=== PATIENT | male | born 1955 | race Caucasian/White ===

== ENCOUNTER 2018-05-08 15:02 | Outpatient (CLI) | payer MEDICARE ==
[2018-05-08 15:45] LABS: #Eosinphils 0.1 thou/uL (0.0-0.7); #Lymphocytes 1.5 thou/uL (1.20-3.40); #Monocytes 0.5 thou/uL (0.11-0.59); #Neutrophils 4.1 thou/uL (1.40-6.50); %Basophils 0.4 % (0.0-1.0); %Eosinophils 2.3 % (0.0-10.0); %Lymphocytes 23.3 % (21.0-51.0); %Monocytes 8.3 % (0.0-10.0); %Neutrophils 65.6 % (42.0-75.0); Hemoglobin 13.1 g/dL (14.0-18.0); Mean Corpuscular HGB CONC 35.3 g/dL (32.0-36.0); Mean Corpuscular Hemoglobin 31.4 pg (27.0-31.0); Mean Corpuscular Volume 88.9 fL (78.0-98.0); Mean Platelet Volume 7.1 fL (7.4-10.4); Platelet Count 147 thou/uL (130-400); Red Blood Cell (RBC) Count 4.19 mill/uL (4.70-6.10); White Blood Cell (WBC) Count 6.3 thou/uL (4.8-10.8)
[2018-05-08 16:03] LABS: Anion Gap 13 mmol/L (10-20); BUN (Urea Nitrogen) 72 mg/dL (8.4-25.7); Calc. Creatinine Clearance 0 mL/min (70-130); Calcium 9.3 mg/dL (7.8-10.44); Carbon Dioxide 30 mmol/L (23-31); Chloride 100 mmol/L (98-107); Estimated GFR-MDRD 39; Glucose 105 mg/dL (80-115); Potassium 4.5 mmol/L (3.5-5.1); Sodium 138 mmol/L (136-145)
[2018-05-08 16:10] LABS: PTT 29.7 SEC (22.9-36.1)
--- NOTE | 2018-05-09 17:02 | EKG ---
Test Reason : Blood Pressure : / mmHG Vent. Rate : 064 BPM Atrial Rate : 064 BPM P-R Int : 134 ms QRS Dur : 154 ms QT Int : 418 ms P-R-T Axes : 058 091 -25 degrees QTc Int : 431 ms Electronic atrial pacemaker Premature ventricular complexes Rightward axis Non-specific intra-ventricular conduction block Cannot rule out Inferior infarct , age undetermined Abnormal ECG Confirmed by FEDERICO VOGEL ([id number]) on 05/09/2018 5:02:21 PM Referred By: ISMA Confirmed By:FEDERICO VOGEL
== END 2018-05-08 15:03 | disposition home or self-care (01) ==
LOC: LABBT 15:02
PROVIDERS: ATTEND Internal Medicine Cardiovascular Disease
DX: Z01.818 Encounter for other preprocedural examination (principal); Z51.81 Encounter for therapeutic drug level monitoring; I50.9 Heart failure, unspecified; Z79.01 Long term (current) use of anticoagulants
CPT/HCPCS: 80048; 85025; 85610; 85730; 93005; 93010

== ENCOUNTER 2018-05-10 08:50 | Day surgery (SDC) | payer MEDICARE ==
[2018-05-08 15:37] VITALS: BMI 36.2
[2018-05-10] MEDS ORDERED: Iopamidol 370 76% 50 ML VIAL FS ONE (10:06)
[2018-05-10] MEDS ORDERED: Midazolam HCl 5 mg/5 ml Vial ONE (11:20)
[2018-05-10] MEDS ORDERED: CEFAZOLIN/Water 2 GM/20 ML SYRINGE ONE (11:20)
[2018-05-10] MEDS ORDERED: Ketamine 50 MG/ML VIAL ONE (11:20)
[2018-05-10] MEDS ORDERED: Propofol 1,000 MG/100 ML VIAL IV ONE (11:21)
[2018-05-10] MEDS ORDERED: Morphine Sulfate 2 MG/ML SYRINGE SLOW IVP PRN (13:02)
[2018-05-10] MEDS ORDERED: Ondansetron HCl/PF 4 MG/2 ML Vial IVP PRN (13:02)
[2018-05-10] MEDS ORDERED: Promethazine HCl 25 MG/ML VIAL SLOW IVP PRN (13:02)
--- NOTE | 2018-05-10 15:32 | RAD ---
CHEST 1 VIEW: HISTORY: AICD. COMPARISON: None. FINDINGS: Heart size is enlarged. Mild pulmonary venous congestion. AICD/pacer is present. There is markedly diminished degenerative change of both glenohumeral joints. No acute osseous abnor mality. Right axillary surgical clips. IMPRESSION: Cardiomegaly and mild pulmonary venous congestion. POS: [facility]
== END 2018-05-10 16:18 | disposition home or self-care (01) ==
LOC: CCL 08:50
PROVIDERS: ATTEND Internal Medicine Cardiovascular Disease
PROC: 02HN0KZ Insertion of Defibrillator Lead into Pericardium, Open Approach (ICD-10-PCS; principal; 2018-05-10)
PROC: 0JH609Z Insertion of Cardiac Resynchronization Defibrillator Pulse Generator into Chest Subcutaneous Tissue and Fascia, Open Approach (ICD-10-PCS; 2018-05-10)
DX: I11.0 Hypertensive heart disease with heart failure (principal); I50.22 Chronic systolic (congestive) heart failure; I42.8 Other cardiomyopathies; I44.7 Left bundle-branch block, unspecified; E78.2 Mixed hyperlipidemia; G47.33 Obstructive sleep apnea (adult) (pediatric); E11.9 Type 2 diabetes mellitus without complications; E66.01 Morbid (severe) obesity due to excess calories; Z68.36 Body mass index [BMI] 36.0-36.9, adult; Z79.4 Long term (current) use of insulin; Z79.82 Long term (current) use of aspirin; Z79.899 Other long term (current) drug therapy
CPT/HCPCS: 33224; 33225; 36005; 71045; 75820; 82962; 93641; C1769; C1882; C1900; 36416; J2250; J2704; J3490

== ENCOUNTER 2019-01-27 22:16 | Inpatient (IN) | payer MEDICARE ==
--- NOTE | 2019-01-27 23:47 | PDOC.FPRHP ---
- History of Present Illness Chief Complaint: SOB History of Present Illness: Mr Bourgeois is a 64yo male with pmh DMII, HTN, HLD, HFrEF presenting with SOB that started Sunday directly transferred from [facility] in [facility]. Reports he started to have cough, orthopnea, and SOB with exertion on Sunday. Sunday he developed LE edema. SOB has since been worsening which is why he presented to ED. Denies fevers, chills, palpitations. He sees Dr Lanier, nuclear plant construction worker, and has an AICD. Denies being shocked by AICD. Not on O2 at baseline. Uses CPAP at night for sleep apnea. PCP: Dr Gaytan ED Course: Lasix 80mg, CXR- nml - Allergies/Adverse Reactions Allergies Allergy/AdvReac Type Severity Reaction Status Date / Time No Known Allergies Allergy Unverified 05/08/18 15:31 - Home Medications Medication Instructions Recorded Confirmed Type Allopurinol 300 mg PO QAM 01/10/17 05/10/18 History Aspirin [Ecotrin] 81 mg PO QPM 01/10/17 05/10/18 History Carvedilol 50 tab PO BID 01/10/17 05/10/18 History Celecoxib 200 mg PO QAM 01/10/17 05/10/18 History Cyclobenzaprine [Flexeril] 10 mg PO ASDIR PRN 01/10/17 05/08/18 History Digoxin 125 mcg PO ASDIR 01/10/17 05/10/18 History Gemfibrozil 600 mg PO BID 01/10/17 05/10/18 History HYDROcodone/Acetaminophen 1 tab PO ASDIR PRN 01/10/17 05/10/18 History [Hydrocodon-Acetaminophn 10-325] Humulin R [NovoLIN R] 20 - 25 units SC BID-WM 01/10/17 05/10/18 History Insulin NPH Human Isophane 25 unit SC BID 01/10/17 05/10/18 History [NovoLIN N] Lisinopril 10 mg PO BID 01/10/17 05/10/18 History Omeprazole 20 mg PO QAM 01/10/17 05/10/18 History Pravastatin Sodium [Pravachol] 20 mg PO HS 01/10/17 05/10/18 History Sertraline HCl 150 mg PO QAM 01/10/17 05/10/18 History Tramadol HCl 50 mg PO ASDIR PRN 01/10/17 05/10/18 History Mn 05/08/18 History Torsemide [Demadex] 20 mg PO BID 05/08/18 05/10/18 History - History PMHx: DM, Breast CA, HTN, HLD, ILANA PSHx: Knee, hip, back surgery x2, Hand surgery FHx: HTN, DM Social: Smoked 1/2ppd for 15 yrs quit in 1993. Denies alcohol or drug use. - Review of Systems General: denies: fever/chills, weight/appetite/sleep changes, night sweats Eyes: denies: eye pain, vision changes ENT: denies: nasal congestion, rhinorrhea Respiratory: reports: cough, shortness of breath, exercise intolerance. denies : congestion Cardiovascular: reports: chest pain, edema, paroxysmal nocturnal dyspnea, orthopnea. denies: palpitation Gastrointestinal: denies: nausea, vomiting, diarrhea, constipation, abdominal pain Genitourinary: denies: dysuria, other (hematuria) Skin: denies: rashes, lesions Musculoskeletal: denies: pain, tenderness Neurological: denies: syncope, weakness - Vital signs BP: 167/81 HR: 52 RR: 20 Tmax: 97.7 Pox: 96% on 3L Wt: 115kg - Physical Exam Constitutional: NAD, awake, alert and oriented, well developed HEENT: normocephalic and atraumatic, conjunctiva clear, grossly normal hearing, MMM, oropharynx clear Neck: supple, trachea midline, no JVD, no bruits Heart: RRR, pulses present, other (pitting edema to ankles) Lungs: other (Coarse breath sounds bilateral. Currently on 3L NC) Abdomen: soft, non-tender, bowel sounds present Musculoskeletal: normal structure, normal tone, ROM grossly normal Neurological: no focal deficit Skin: no rash/lesions, good turgor Heme/Lymphatic: no unusual bruising or bleeding Psychiatric: normal mood and affect, good judgment and insight, intact recent and remote memory FMR H&P: Results - Labs Result Diagrams: 01/27/19 23:22 - Radiology Interpretation Chest x-ray Status: report reviewed by me Additional comment: Bibasilar atelectasis/scar. No pulm edema FMR H&P: A/P - Plan Mr Reisig is a 64yo male with pmh of CHF presenting transferred from [facility] in [facility] for CHF exacerbation CHF exacerbation - Echo on 03/29/17: LVEF 30-35%, borderline LA enlargement and mild TR - BNP 1218 - Has Dual chamber ICD placed November 2010 - diet, fluid restriction - Strict I&Os, weight daily - s/p Lasix 80mg at OSH. Will continue lasix 40mg BID - Continue home meds, treat dysrhythmia - Admit to tele Ventricular Dysrhythmia - Runs of NSVT and PVCs - Dr Peguero called from the ED, will load with Amiodarone - Will consult Dr Lanier in AM Hypomagnesemia - Initially 1.5 - Replaced with 2g at OSH, recheck was 1.8 - Will recheck with morning labs HTN - Continue home meds CKD - Avoid nephrotoxic medications - Continue to monitor with AM BMP DMII - CC diet - Continue home meds - ACHS accuchecks, SSI, hypoglycemic protocol ILANA - CPAP at HS HLD - Continue home meds Hx of Remote breast cancer Code Status: FULL DVT ppx: Lovenox PCP: Dr Gaytan FMR H&P: Upper Level - Pertinent history 64 yo CM with PMH of nonischemic cardiomyopathy and HFrEF (last documented 2016 30-35%) s/p biventricular AICD/pacemaker presenting with worsening HENDERSON and lower extremity swelling that began on Sunday. Pt initially presented to [facility] and transferred here for higher level of care. Pt found to have elevated BNP and low magnesium. Pt given 80 mg IV lasix. In ER, pt noted to have ventricular arrhythmia on telemetry and EKG including frequent runs of 6-7 PVCs, nonsustained Vtach, and paced rhythm. Pt denies CP or palpitations and only endorses HENDERSON. - Pertinent findings VSS Gen: NAD CV: irregular rhythm, distant heart sounds, no obvious murmur Resp: coarse rales bilaterally - Plan Date/Time: 01/27/19 4299 I, Bulmaro Douglas MD PGY3, have evaluated this patient and agree with findings/ plan as outlined by administrative intern resident. Pertinent changes/additions are listed here. 1. HFrEF (EF 30-35%) exacerbation -Admit to inpatient telemetry for CHF exacerbation with strict I/O's and IV lasix. -Repeat 2 view CXR. -Obtain TTE as pt was scheduled to have one repeated today in outpatient setting. 2. Hypomagnesemia -1.5 at outside facility s/p 2 g, corrected to 1.8 -Repeat in AM along with Ph level 3. Ventricular arrhythmia -AICD has not fired. -Discussed case with international broadcast music librarian nuclear plant construction worker who recommended loading and starting IV amiodarone. 150 mg slow IVP ordered then gtt at 1 mg/min. -See note below regarding interrogation. -Consult cardiology in AM, pt's nuclear plant construction worker is Dr. Lanier. 4. Nonischemic cardiomyopathy s/p biventricular AICD/pacemaker -[employer] device interrogated in ER. -Report called back that noted around 23:45, pt had episode of atrial rate in 70s and ventricular rate in 130s, confirming ventricular arrhythmia seen on telemetry. 5. ABRIL on CKD3 -Trend BMP. FULL code PPx: lovenox for VTE, no GI indicated. disposition: Admit under inpatient status for anticipated length of stay greater than two midnights, pending clinical course. Addendum - Attending - Attending Attestation Date/Time: 01/27/19 2297 I personally evaluated the patient and discussed the management with Dr. Blackman /Misael. I agree with the History, Examination, Assessment and Plan documented above with any addition or exceptions noted below. Patient with history of nonischemic cardiomyopathy and CHFrEF with AICD in place presenting with 2-3 days of increasing chest congestion and lower extremity swelling. Reports taking all meds as rx'd and adhering to his fluid restriction. Saw Dr. Lanier 1 month ago and was told was stable. Denies chest pain, palpitations. ON exam, diffuse rales b/l and 3+ b/l edema. EKG shows frequent PVC, nonsustained VT, and otherwise V paced rhythm. Patient will be admitted for CHFrEF exacerbation and ventricular dysrhythmia. Admit to telemetry. Will load with Amiodarone per Cardiology recs. Continue diuresis and other HF meds. Labs done at OSH and will repeat here as had HypoMg at outside hospital that was treated. Discuss with patient's outpatient nuclear plant construction worker in AM. Further mgmt per clinical course and cardiology recs.
[2019-01-27 23:57] LABS: Anion Gap 16 mmol/L (10-20); BUN (Urea Nitrogen) 59 mg/dL (8.4-25.7); Calc. Creatinine Clearance 0 mL/min (70-130); Calcium 9.6 mg/dL (7.8-10.44); Carbon Dioxide 27 mmol/L (23-31); Chloride 100 mmol/L (98-107); Estimated GFR-MDRD 43; Glucose 100 mg/dL (80-115); Magnesium 1.8 mg/dL (1.6-2.6); Potassium 4.2 mmol/L (3.5-5.1); Sodium 139 mmol/L (136-145)
[2019-01-28] MEDS ORDERED: Amiodarone 150 MG/3 ML VIAL ONE (00:07)
[2019-01-28 00:08] LABS: Troponin I 0.026 ng/mL (< 0.028)
[2019-01-28] MEDS ORDERED: Amiodarone HCl 150 MG in Dextrose 5% in Water 100 ML IVPB SCH (00:15)
[2019-01-28] MEDS ORDERED: Amiodarone HCl 450 MG in Dextrose 5% in Water 250 ML IVPB SCH (00:15)
[2019-01-28] MEDS ORDERED: Amiodarone 450 MG in Dextrose 5% in Water 250 ML IVPB SCH (01:58)
[2019-01-28] MEDS ORDERED: Dextrose 50% Abboject 50 ML SYRINGE SLOW IVP PRN (01:58)
[2019-01-28] MEDS ORDERED: HumaLOG 300 UNITS/3 ML VIAL SC PRN (01:58)
[2019-01-28] MEDS ORDERED: Dextrose 5% in Water 1,000 ML IV PRN (01:58)
[2019-01-28 02:23] VITALS: BMI 36.0
[2019-01-28 02:45] LABS: #Eosinphils 0.2 thou/uL (0.0-0.7); #Lymphocytes 1.4 thou/uL (1.20-3.40); #Monocytes 0.5 thou/uL (0.11-0.59); #Neutrophils 4.7 thou/uL (1.40-6.50); %Basophils 0.7 % (0.0-1.0); %Eosinophils 2.8 % (0.0-10.0); %Monocytes 7.1 % (0.0-10.0); %Neutrophils 69.4 % (42.0-75.0); Hemoglobin 12.6 g/dL (14.0-18.0); Mean Corpuscular HGB CONC 33.3 g/dL (32.0-36.0); Mean Corpuscular Hemoglobin 30.2 pg (27.0-31.0); Mean Corpuscular Volume 90.7 fL (78.0-98.0); Mean Platelet Volume 7.3 fL (7.4-10.4); Platelet Count 209 thou/uL (130-400); RBC Distribution Width 12.9 % (11.5-14.5); Red Blood Cell (RBC) Count 4.17 mill/uL (4.70-6.10); White Blood Cell (WBC) Count 6.8 thou/uL (4.8-10.8)
[2019-01-28 03:08] LABS: Anion Gap 16 mmol/L (10-20); BUN (Urea Nitrogen) 59 mg/dL (8.4-25.7); Calc. Creatinine Clearance 69 mL/min (70-130); Calcium 9.6 mg/dL (7.8-10.44); Carbon Dioxide 23 mmol/L (23-31); Chloride 103 mmol/L (98-107); Estimated GFR-MDRD 40; Glucose 102 mg/dL (80-115); Magnesium 1.6 mg/dL (1.6-2.6); Potassium 3.9 mmol/L (3.5-5.1); Sodium 138 mmol/L (136-145)
[2019-01-28 03:09] LABS: Troponin I 0.027 ng/mL (< 0.028)
[2019-01-28] MEDS: Furosemide 40 MG/4 ML VIAL SLOW IVP SCH ×2 (05:26→13:10)
[2019-01-28 06:35] LABS: Troponin I 0.028 ng/mL (< 0.028)
--- NOTE | 2019-01-28 08:12 | PDOC.EVN ---
Addendum - Attending - Attending Attestation Date/Time: 01/28/19 6440 I personally evaluated the patient and discussed the management with Dr. Turner. I agree with the History, Examination, Assessment and Plan documented in her progress note with any addition or exceptions noted below. Patient improved this morning. Here for CHF exacerbation and ventricular dysrhythmia. His rhythm strip has improved to consistent bigeminy on tele after initiation of Amiodarone drip. Denies complaints. Reports some improvement in swelling and chest congestion. Continue Amio drip, await Cardiology recs regarding this new arrhythmia. Continue diuresis and monitor I/O.
[2019-01-28] MEDS ORDERED: Lisinopril 10 MG TAB PO SCH (09:00)
[2019-01-28] MEDS ORDERED: Prevnar 13-Val Conj/PF 0.5 ML SYRINGE IM ONE (09:00)
[2019-01-28] MEDS ORDERED: Non-Formulary Item 1 EACH (Omeprazole [Omeprazole] 20 MG) PO SCH (09:00)
--- NOTE | 2019-01-28 09:09 | PDOC.FM ---
- Subjective Subjective: Patient reports feeling better this AM. He is still having some SOB and productive cough, but says it has improved. He has not gotten out of bed yet, because this worsens his symptoms. He denies any chest pain, palpitations, N/V. He reports leg swelling bilaterally. - Objective MAR Reviewed: Yes Vital Signs & Weight: Vital Signs (12 hours) Temp Pulse Resp BP Pulse Ox 01/28/19 07:47 97 01/28/19 07:30 98 F 84 16 160/74 H 97 01/28/19 03:27 97.6 F 88 20 143/68 H 97 01/28/19 01:58 96.5 F L 74 24 H 142/97 H 97 Weight Weight 113.908 kg Result Diagrams: 01/28/19 02:35 01/28/19 02:35 Phys Exam - Physical Examination Constitutional: NAD (resting comfortably on O2 by NC) HEENT: moist MMs, sclera anicteric bibasilar rhonchi, no wheezes Cardiovascular: irregular (irregular rhythm with no murmurs and normal rate) Gastrointestinal: soft, non-tender, no distention, positive bowel sounds Musculoskeletal: edema present (1+ pitting edema in bilateral ankles and legs up to mid-tibia) Neurological: non-focal, moves all 4 limbs Psychiatric: normal affect, A&O x 3 Skin: normal turgor, cap refill <2 seconds Dx/Plan (1) Acute respiratory failure with hypoxia Code(s): J96.01 - ACUTE RESPIRATORY FAILURE WITH HYPOXIA Status: Acute (2) Acute exacerbation of CHF (congestive heart failure) Code(s): I50.9 - HEART FAILURE, UNSPECIFIED Status: Acute Qualifiers: Heart failure type: systolic Qualified Code(s): I50.23 - Acute on chronic systolic (congestive) heart failure (3) Ventricular dysrhythmia Code(s): I49.9 - CARDIAC ARRHYTHMIA, UNSPECIFIED Status: Acute (4) Nonischemic cardiomyopathy Code(s): I42.8 - OTHER CARDIOMYOPATHIES Status: Acute (5) Diabetes mellitus type 2 in obese Code(s): E11.69 - TYPE 2 DIABETES MELLITUS WITH OTHER SPECIFIED COMPLICATION; E66.9 - OBESITY, UNSPECIFIED Status: Acute (6) Hypertension Code(s): I10 - ESSENTIAL (PRIMARY) HYPERTENSION Status: Acute (7) Hyperlipidemia Code(s): E78.5 - HYPERLIPIDEMIA, UNSPECIFIED Status: Acute (8) ILANA treated with BiPAP Code(s): G47.33 - OBSTRUCTIVE SLEEP APNEA (ADULT) (PEDIATRIC) Status: Acute (9) Hypomagnesemia Code(s): E83.42 - HYPOMAGNESEMIA Status: Resolved (10) CKD (chronic kidney disease) stage 3, GFR 30-59 ml/min Code(s): N18.3 - CHRONIC KIDNEY DISEASE, STAGE 3 (MODERATE) Status: Acute - Plan Plan: Acute Hypoxic Respiratory Failure 2/2 CHF exacerbation and ventricular dysrhythmia Currently on 3L O2 by [place]. - Continue O2 - Diurese with lasix Acute CHF exacerbation Echo on 03/29/17: LVEF 30-35%, borderline LA enlargement and mild TR - BNP 1218 - Has Dual chamber ICD placed November 2010 - HH diet, fluid restriction - Strict I&Os, weight daily - Lasix 40mg BID - Continue home lisinopril Ventricular Dysrhythmia Runs of NSVT and PVCs, transitioned to bigeminy this AM. - Dr Peguero called from the ED, started amiodarone - Consulted his americanization teacher, Dr. Lanier, appreciate recs - Interrogated his AICD and showed NSVT and multiple PVC's, did not fire - Will continue to monitor closely on tele Hypomagnesemia, resolved Initially 1.5->1.8 after 2g mag - Monitor HTN - Continue home meds CKDIII Per Dr. Gaytan the patient had been having uptrending creatinine with a peak of around 2.5 in September, but it has been downtrending since then and was 1.7 here. - Avoid nephrotoxic medications - Continue to monitor DMII - CC diet - Continue home meds - ACHS accuchecks, SSI, hypoglycemic protocol ILANA - CPAP at HS HLD - Continue home meds Code Status: FULL DVT ppx: Lovenox
--- NOTE | 2019-01-28 10:37 | RAD ---
EXAM: CHEST ONE VIEW: History: Congestive heart failure. Comparison: 05-10-18 FINDINGS: Monitor leads overlie the chest. Left ICD. Borderline sized heart. Mild increased markings bilaterall y but without overt edema or confluent pneumonia. Bilateral shoulder joint arthrosis. IMPRESSION: Stable appearing chest. Borderline sized heart. No significant acute process. POS: [facility]
[2019-01-28] MEDS: Allopurinol 300 MG TAB PO SCH (10:40)
[2019-01-28] MEDS: NPH, Human Insulin Isophane 300 UNIT/3 ML VIAL SC SCH ×2 (10:42→20:53)
[2019-01-28] MEDS: Enoxaparin Sodium 40 MG/0.4 ML SYRINGE SC SCH (13:19)
[2019-01-28] MEDS ORDERED: traMADol HCl 50 MG TAB PO PRN (13:25)
[2019-01-28] MEDS ORDERED: Magnesium Sulfate 3 GM in Sodium Chloride 0.9% 100 ML IVPB SCH (15:00)
[2019-01-28] MEDS: Potassium Chloride 20 MEQ TAB PO SCH (15:35)
[2019-01-28] MEDS: Amiodarone 200 MG TAB PO SCH ×2 (15:36→20:00)
[2019-01-28] MEDS: HYDROcodone/Acetaminophen 10/325 mg Tablet PO PRN (15:36)
[2019-01-28] MEDS: Carvedilol 25 MG TAB PO SCH (17:51)
--- NOTE | 2019-01-28 18:29 | CON ---
DATE OF CONSULTATION: 01/28/2019 REASON FOR CONSULTATION: 1. Congestive heart failure systolic acute on chronic. 2. Ventricular arrhythmias also present. HISTORY OF PRESENT ILLNESS: Mr. Bourgeois is a very pleasant 64-year-old gentleman with a long history of cardiomyopathy. He was admitted to the hospital with intractable shortness of breath and increasing amounts of edema despite medical therapy. The patient continues to feel short of breath currently. Past history, a long history of a cardiomyopathy. Cardiac catheterization many years ago showing no obstructive coronary artery disease. Past history is a previous defibrillator implantation, it has been followed by Electrophysiology, Dr. Rosario. MEDICATIONS: Prior to admission; 1. Carvedilol 50 mg twice a day. 2. Allopurinol. 3. Aspirin. 4. Digoxin. 5. Gemfibrozil. 6. Insulin. 7. Lisinopril 10 mg twice a day. 8. Torsemide 20 mg twice a day. 9. Pravastatin 20 mg a day. PAST MEDICAL HISTORY: Diabetes, breast cancer, and hypertension. PAST SURGICAL HISTORY: Knee, hip, and back surgeries. FAMILY HISTORY: Hypertension and diabetes. SOCIAL HISTORY: Smoked half pack of cigarettes per day 15 years, quit in 1993. REVIEW OF SYSTEMS: CONSTITUTIONAL: Positive for significant weight gain. HEENT: Vision, no changes. Hearing, no changes. PULMONARY: No cough or wheezing. GASTROINTESTINAL: No nausea, vomiting, or diarrhea. SKIN: No rashes. NEUROLOGIC: No unilateral weakness or numbness. PSYCHIATRIC: No unusual depression or anxiety. HEMATOLOGIC: No unusual bruising. GENITOURINARY: No burning with urination. PHYSICAL EXAMINATION: GENERAL: This is a pleasant 64-year-old gentleman, in no distress. VITAL SIGNS: Blood pressure is still high 164/73 and pulse 88 and regular. HEENT: Eyes, sclerae nonicteric. Mouth, mucous membranes moist. NECK: Supple. No lymphadenopathy. LUNGS: Clear. No wheezing, rales, or rhonchi. ABDOMEN: Obese and nontender. EXTREMITIES: No clubbing or cyanosis. There is vcliheux-hw-[id number] edema. SKIN: Warm and dry. PERTINENT LABORATORY DATA: Creatinine is 1.7, 1.62 on admission, potassium 3.9, and the magnesium 1.6. Chest x-ray shows cardiomegaly, mild increased interstitial markings bilaterally. On EKG, there were very frequent PVCs and some ventricular bigeminy. Also some nonsustained ventricular tachycardia. ASSESSMENT: 1. Decompensated congestive heart failure systolic acute on chronic. 2. Ventricular arrhythmias. 3. Frequent PVCs in bigeminy may be contributing to the worsening heart failure. PLAN: 1. Currently on amiodarone intravenously. Having a lot of burning at the site. We will stop amiodarone and change to oral amiodarone. 2. I think it would be a good candidate to change from lisinopril to Entresto. Have to be off the Entresto for least 36 hours. He initially had this suggested by somebody, but he did not want to do it due to cost, but he thinks he will be able to do it now. 3. Consult EP. At some point, may need to consider PVC ablation if he has adequate number to improve his left ventricular function. 4. Continue to replete potassium and magnesium. 5. Continue beta blockers. Thank you very much. We will follow with you. Job ID: [id number]
[2019-01-28] MEDS: Simvastatin 5 MG TAB PO SCH (20:00)
[2019-01-28] MEDS ORDERED: Potassium Chloride 20 MEQ TAB PO SCH (20:00)
[2019-01-28] MEDS: Aspirin 81 mg Enteric Coated Tablet PO SCH (20:00)
[2019-01-28] MEDS ORDERED: Furosemide 40 MG/4 ML VIAL SLOW IVP SCH (20:00)
[2019-01-28] MEDS ORDERED: Pravastatin Sodium 20 MG TAB PO SCH (21:00)
[2019-01-29] MEDS: HYDROcodone/Acetaminophen 10/325 mg Tablet PO PRN ×3 (03:12→21:37)
[2019-01-29] MEDS: Furosemide 40 MG/4 ML VIAL SLOW IVP SCH ×2 (04:57→13:27)
[2019-01-29 06:01] LABS: Anion Gap 14 mmol/L (10-20); BUN (Urea Nitrogen) 63 mg/dL (8.4-25.7); Calc. Creatinine Clearance 73 mL/min (70-130); Calcium 9.2 mg/dL (7.8-10.44); Carbon Dioxide 28 mmol/L (23-31); Chloride 99 mmol/L (98-107); Estimated GFR-MDRD 43; Glucose 122 mg/dL (80-115); Potassium 3.8 mmol/L (3.5-5.1); Sodium 137 mmol/L (136-145)
--- NOTE | 2019-01-29 07:30 | PDOC.EVN ---
Addendum - Attending - Attending Attestation Date/Time: 01/29/19 7190 I personally evaluated the patient and discussed the management with Dr. Turner. I agree with the History, Examination, Assessment and Plan documented in her progress note with any addition or exceptions noted below. Patient reports feeling improved. Continues to diurese well and reports improved respiration. Tele strip more stable, on PO Amiodarone. Awaiting further cardiology recs and EP recs. Continue diuresis and strict I/O.
[2019-01-29] MEDS: NPH, Human Insulin Isophane 300 UNIT/3 ML VIAL SC SCH ×2 (09:09→21:28)
[2019-01-29] MEDS: Potassium Chloride 20 MEQ TAB PO SCH ×2 (09:10→16:10)
[2019-01-29] MEDS: Carvedilol 25 MG TAB PO SCH ×2 (09:11→16:10)
[2019-01-29] MEDS: Amiodarone 200 MG TAB PO SCH ×2 (09:12→21:28)
[2019-01-29] MEDS: Allopurinol 300 MG TAB PO SCH (09:12)
[2019-01-29] MEDS: Enoxaparin Sodium 40 MG/0.4 ML SYRINGE SC SCH (09:12)
--- NOTE | 2019-01-29 09:39 | PDOC.FM ---
- Subjective Subjective: Patient symptomatically improved this AM. Reports continued SOB and cough, but says it is a little better. Denies chest pain, palpitations, N/V. Reports swelling in his legs have improved. - Objective MAR Reviewed: Yes Vital Signs & Weight: Vital Signs (12 hours) Temp Pulse Resp BP Pulse Ox 01/29/19 08:00 98.2 F 82 16 161/79 H 95 01/29/19 03:08 97.9 F 88 18 143/65 H 97 01/29/19 02:20 82 20 Weight Weight 113.03 kg I&O: 01/28/19 01/29/19 01/30/19 06:59 06:59 06:59 Intake Total 1660 240 Output Total 975 Balance 685 240 Result Diagrams: 01/28/19 02:35 01/29/19 04:48 Phys Exam - Physical Examination Constitutional: NAD HEENT: moist MMs, sclera anicteric Respiratory: no wheezing bibasilar rhonchi irregular rhythm, no murmurs Gastrointestinal: soft, non-tender, no distention, positive bowel sounds Musculoskeletal: pulses present, edema present (1+ pitting edema to mid-tibia bilaterally) Neurological: non-focal, moves all 4 limbs Psychiatric: normal affect, A&O x 3 Skin: normal turgor, cap refill <2 seconds Dx/Plan (1) Acute respiratory failure with hypoxia Code(s): J96.01 - ACUTE RESPIRATORY FAILURE WITH HYPOXIA Status: Acute (2) Acute exacerbation of CHF (congestive heart failure) Code(s): I50.9 - HEART FAILURE, UNSPECIFIED Status: Acute Qualifiers: Heart failure type: systolic Qualified Code(s): I50.23 - Acute on chronic systolic (congestive) heart failure (3) Ventricular dysrhythmia Code(s): I49.9 - CARDIAC ARRHYTHMIA, UNSPECIFIED Status: Acute (4) Nonischemic cardiomyopathy Code(s): I42.8 - OTHER CARDIOMYOPATHIES Status: Acute (5) Diabetes mellitus type 2 in obese Code(s): E11.69 - TYPE 2 DIABETES MELLITUS WITH OTHER SPECIFIED COMPLICATION; E66.9 - OBESITY, UNSPECIFIED Status: Acute (6) Hypertension Code(s): I10 - ESSENTIAL (PRIMARY) HYPERTENSION Status: Acute (7) Hyperlipidemia Code(s): E78.5 - HYPERLIPIDEMIA, UNSPECIFIED Status: Acute (8) ILANA treated with BiPAP Code(s): G47.33 - OBSTRUCTIVE SLEEP APNEA (ADULT) (PEDIATRIC) Status: Acute (9) Hypomagnesemia Code(s): E83.42 - HYPOMAGNESEMIA Status: Resolved (10) CKD (chronic kidney disease) stage 3, GFR 30-59 ml/min Code(s): N18.3 - CHRONIC KIDNEY DISEASE, STAGE 3 (MODERATE) Status: Acute - Plan Plan: Acute Hypoxic Respiratory Failure 2/2 CHF exacerbation and ventricular dysrhythmia Currently on 2L O2 by [place]. - Continue O2 - Diurese with lasix Acute CHF exacerbation Echo on 03/29/17: LVEF 30-35%, borderline LA enlargement and mild TR - BNP 1218 - Has Dual chamber ICD placed November 2010 - HH diet, fluid restriction - Strict I&Os, weight daily - Lasix 40mg BID - Continue home lisinopril and coreg Ventricular Dysrhythmia Runs of NSVT and PVCs, transitioned to bigeminy this AM. - Dr Peguero called from the ED, started amiodarone, this has been transitioned to PO - Consulted his program director group work, Dr. Lanier, appreciate recs - Interrogated his AICD and showed NSVT and multiple PVC's, did not fire - Will continue to monitor closely on tele - May need EP consultation Hypomagnesemia, resolved Initially 1.5->1.8 after 2g mag - Monitor HTN - Continue home meds CKDIII Per Dr. Gaytan the patient had been having uptrending creatinine with a peak of around 2.5 in September, but it has been downtrending since then and was 1.7 here. - Avoid nephrotoxic medications - Continue to monitor DMII - CC diet - Continue home meds - ACHS accuchecks, SSI, hypoglycemic protocol ILANA - CPAP at HS HLD - Continue home meds Code Status: FULL DVT ppx: Lovenox
[2019-01-29] MEDS ORDERED: Amiodarone 200 MG TAB PO SCH ×3 (09:58→15:00)
--- NOTE | 2019-01-29 10:17 | PRG ---
DATE OF SERVICE: 01/29/2019 SUBJECTIVE: Mr. Bourgeois is feeling about the same. He said perhaps breathing a little better, but he is wheezing. OBJECTIVE: VITAL SIGNS: Blood pressure is high 160/79, pulse is 82, it is regular. LUNGS: Some expiratory wheezing. CARDIAC: Normal S1, normal S2. ABDOMEN: Soft, nontender. EXTREMITIES: Moderate edema. PERTINENT LABORATORY DATA: The creatinine is 1.63, really unchanged from admission. Potassium 3.8, magnesium 2. ASSESSMENT: 1. Congestive heart failure systolic, acute on chronic. 2. Frequent premature ventricular contractions and bigeminy. I think this maybe playing a role in his heart failure. PLAN: 1. Electrophysiology consultation to see whether ablation maybe an option. 2. Reduce amiodarone. I do not think he will be able to take this long-term. He is already having some wheezing, and I think this would not be a good drug for him long-term. 3. We will start Entresto tomorrow after a washout period, that will be 48 hours. Job ID: [id number]
[2019-01-29] MEDS ORDERED: Furosemide 40 MG/4 ML VIAL SLOW IVP SCH (20:00)
[2019-01-29] MEDS ORDERED: Potassium Chloride 20 MEQ TAB PO SCH (20:00)
[2019-01-29] MEDS: Aspirin 81 mg Enteric Coated Tablet PO SCH (21:28)
[2019-01-29] MEDS: Simvastatin 5 MG TAB PO SCH (21:28)
[2019-01-30] MEDS: Furosemide 40 MG/4 ML VIAL SLOW IVP SCH (05:49)
[2019-01-30] MEDS: HYDROcodone/Acetaminophen 10/325 mg Tablet PO PRN ×2 (05:55→16:37)
--- NOTE | 2019-01-30 06:35 | PDOC.FM ---
- Subjective Subjective: Patient reports that his SOB has improved significantly. He reports that he was able to sleep overnight and still has a productive cough. He denies any chest pain. Reports his swelling has improved. Reports some watery stools yesterday and this AM. Denies any diarrhea prior to admission. Denies abdominal pain, fevers, vomiting. - Objective MAR Reviewed: Yes Vital Signs & Weight: Vital Signs (12 hours) Temp Pulse Resp BP Pulse Ox 01/30/19 03:45 97.8 F 68 20 104/55 L 95 01/29/19 21:26 96 01/29/19 20:37 97.6 F 70 16 114/59 L 96 Weight Weight 113.03 kg I&O: 01/28/19 01/29/19 01/30/19 06:59 06:59 06:59 Intake Total 1660 1190 Output Total 975 480 Balance 685 710 Result Diagrams: 01/28/19 02:35 01/30/19 05:53 Phys Exam - Physical Examination Constitutional: NAD HEENT: moist MMs, sclera anicteric Respiratory: no wheezing bilateral rhonchi at the bases Cardiovascular: no significant murmur irregular rhythm Gastrointestinal: soft, non-tender, no distention, positive bowel sounds Musculoskeletal: edema present (trace pedal edema bilaterally) Neurological: non-focal, moves all 4 limbs Psychiatric: normal affect, A&O x 3 Skin: normal turgor, cap refill <2 seconds Dx/Plan (1) Acute respiratory failure with hypoxia Code(s): J96.01 - ACUTE RESPIRATORY FAILURE WITH HYPOXIA Status: Acute (2) Acute exacerbation of CHF (congestive heart failure) Code(s): I50.9 - HEART FAILURE, UNSPECIFIED Status: Acute Qualifiers: Heart failure type: systolic Qualified Code(s): I50.23 - Acute on chronic systolic (congestive) heart failure (3) Ventricular dysrhythmia Code(s): I49.9 - CARDIAC ARRHYTHMIA, UNSPECIFIED Status: Acute (4) Nonischemic cardiomyopathy Code(s): I42.8 - OTHER CARDIOMYOPATHIES Status: Acute (5) Diabetes mellitus type 2 in obese Code(s): E11.69 - TYPE 2 DIABETES MELLITUS WITH OTHER SPECIFIED COMPLICATION; E66.9 - OBESITY, UNSPECIFIED Status: Acute (6) Hypertension Code(s): I10 - ESSENTIAL (PRIMARY) HYPERTENSION Status: Acute (7) Hyperlipidemia Code(s): E78.5 - HYPERLIPIDEMIA, UNSPECIFIED Status: Acute (8) ILANA treated with BiPAP Code(s): G47.33 - OBSTRUCTIVE SLEEP APNEA (ADULT) (PEDIATRIC) Status: Acute (9) Hypomagnesemia Code(s): E83.42 - HYPOMAGNESEMIA Status: Resolved (10) CKD (chronic kidney disease) stage 3, GFR 30-59 ml/min Code(s): N18.3 - CHRONIC KIDNEY DISEASE, STAGE 3 (MODERATE) Status: Acute - Plan Plan: Acute Hypoxic Respiratory Failure, improving 2/2 CHF exacerbation and ventricular dysrhythmia Currently on 2L O2 by NC. - Continue O2 - Diurese with lasix Acute CHF exacerbation Echo: LVEF 30-35%, dilated LA, mild-mod TR, mod MR. BNP 1218. Has Dual chamber ICD placed November 2010 - diet, fluid restriction - Strict I&Os, weight daily - Lasix 40mg BID - Continue home coreg - Lisinopril was stopped and entresto will be started by cardiology Ventricular Dysrhythmia Runs of NSVT and PVCs, with episodes of bigeminy. Interrogated his AICD and showed NSVT and multiple PVC's, did not fire - Dr Peguero called from the ED, started amiodarone, this has been transitioned to PO and dose decreased due to side effects - Consulted his reinsurance clerk, Dr. Lanier, appreciate recs - Will continue to monitor closely on tele - EP has been consulted, appreciate recs Hypomagnesemia, resolved Initially 1.5->1.8 after 2g mag - Monitor HTN - Continue home meds CKDIII Per Dr. Gaytan the patient had been having uptrending creatinine with a peak of around 2.5 in September, but it has been downtrending since then and was 1.7 here. - Avoid nephrotoxic medications - Continue to monitor DMII - CC diet - Continue home meds - ACHS accuchecks, SSI, hypoglycemic protocol ILANA - CPAP at HS HLD - Continue home meds Code Status: FULL DVT ppx: Lovenox Addendum - Attending - Attending Attestation Date/Time: 01/30/19 9539 I personally evaluated the patient and discussed the management with Dr. Turner. I agree with the History, Examination, Assessment and Plan documented above with any addition or exceptions noted below. Patient reports feeling well, less short of breath with ambulation. He is diuresing, but I/O show net positive, consider increasing diuretics for better effect. Cardiology and EP recs pending, continues to have frequent PVCs. Wean O2 as tolerated.
[2019-01-30 06:58] LABS: Anion Gap 13 mmol/L (10-20); BUN (Urea Nitrogen) 72 mg/dL (8.4-25.7); Calc. Creatinine Clearance 52 mL/min (70-130); Calcium 9.2 mg/dL (7.8-10.44); Carbon Dioxide 29 mmol/L (23-31); Chloride 100 mmol/L (98-107); Estimated GFR-MDRD 30; Glucose 100 mg/dL (80-115); Potassium 4.2 mmol/L (3.5-5.1); Sodium 138 mmol/L (136-145)
--- NOTE | 2019-01-30 07:56 | CON ---
DATE OF CONSULTATION: 01/29/2019 REASON FOR CONSULTATION: Bigeminal PVCs, device management. HISTORY OF PRESENT ILLNESS: Mr. Bourgeois is a 64-year-old gentleman known to our practice for history of chronic systolic heart failure, nonischemic cardiomyopathy, and an ICD that was upgraded to a biventricular system in April of 2018. He was most recently seen in our clinic in December of this year, at which point he was found to have suboptimal ventricular pacing due to premature ventricular complexes. He had optimized medications and also increased his lower rate limit to 70 beats per minute to try to offset this suboptimal pacing. Mr. Bourgeois presented to the emergency room with increasing shortness of breath and a progressive edema despite medical therapy with heart failure exacerbation. He was also found to have high burden PVCs often bigeminal and thus prompting the Electrophysiology consultation. REVIEW OF SYSTEMS: CONSTITUTIONAL: Positive for recent weight gain. Negative for fevers, chills, or malaise. HEENT: Negative for vision changes, speech changes, or hearing changes. PULMONARY: Positive for shortness of breath. Positive for dyspnea on exertion. Positive for orthopnea. Negative for productive cough. CARDIAC: Negative for heart racing, palpitations, chest pain, pressure, syncope, or near syncope. GASTROINTESTINAL: Negative for nausea, vomiting, or diarrhea. NEUROLOGIC: Negative for stroke, stroke-like symptoms, or unilateral weakness. EXTREMITIES: Warm and dry to touch without clubbing or cyanosis, but positive for 2+ pitting edema to bilateral lower extremities. PAST MEDICAL HISTORY: 1. Chronic systolic nonischemic cardiomyopathy with ejection fraction of 30% to 35% in March 2017. 2. Left bundle-branch block. 3. Biventricular ICD, upgraded in April of 2018 from a dual-chamber ICD initially implanted in January of 2011. 4. Hypertension. 5. Type 2 diabetes. 6. Obstructive sleep apnea. 7. Hyperlipidemia. 8. Breast cancer. ALLERGIES: NONE. HOME MEDICATIONS: Include, 1. Carvedilol 50 mg p.o. b.i.d. 2. Aspirin 81 mg q.p.m. 3. Allopurinol 300 mg q.p.m. 4. Digoxin 125 mcg p.o. as directed. 5. Flexeril 10 mg p.o. p.r.n. 6. [place] 10/325 p.o. p.r.n. 7. Gemfibrozil 600 mg p.o. b.i.d. 8. Lisinopril 10 mg p.o. b.i.d. 9. Novolin N 25 units subcutaneous b.i.d. 10. Novolin R 20 to 25 units subcu b.i.d. 11. Sertraline 150 mg p.o. q.a.m. 12. Pravachol 20 mg p.o. at bedtime. 13. Omeprazole 20 mg q.a.m. 14. Tramadol 50 mg p.o. p.r.n. 15. Demadex 20 mg p.o. b.i.d. FAMILY HISTORY: Positive for hypertension and diabetes, otherwise noncontributory. SOCIAL HISTORY: Positive for tobacco use in the remote past, quit in 1993, approximately an 8-pack-year history. Negative for alcohol or drug use. PHYSICAL EXAMINATION: VITAL SIGNS: Temperature 98.2, pulse 82, blood pressure 161/79, respirations 16, and oxygen is 95% on 3 L via nasal cannula. GENERAL: The patient is alert and oriented. Speech is clear. Affect is appropriate. He is somewhat labored with his breathing, sitting mostly upright in bed during the exam. HEENT: Normocephalic and atraumatic. Sclerae are anicteric. EOMs are intact. Oral mucosa is moist and pink with adequate dentition. LUNGS: Exhibit bilateral crackles and an expiratory wheeze. HEART: Rate is regularly irregular. PMI is minimally palpable. Jugular venous distention is seen and it is positive. ABDOMEN: Obese, soft, and nontender. Hepatojugular reflux is positive. EXTREMITIES: Warm and dry to touch without clubbing or cyanosis, but 2+ pitting edema is noted bilaterally. NEUROLOGIC: Grossly intact and nonfocal. Gait was not assessed. DATABASE: Laboratory results: Hemoglobin 12.6, WBC 6.8, and platelet count is 209. Chemistry: Potassium 3.8, creatinine 1.63, and magnesium 2.0. TSH is 1.4. Echocardiogram on 01/29/2019, ejection fraction is estimated at 30% to 35%, frequent PVCs and bigeminy. Left atrium is mildly dilated. Moderate mitral regurgitation is present. IMPRESSION: 1. Acute on chronic congestive heart failure with exacerbation. 2. Nonischemic cardiomyopathy with ejection fraction of 30% to 35% with moderate mitral regurgitation and [id number] tricuspid regurgitation. 3. Frequent monomorphic premature ventricular complexes and nonsustained ventricular tachycardia, left bundle morphology axis I suggesting outflow tract in origin, on p.o. amiodarone loading. 4. Biventricular implantable cardioverter defibrillator, status post upgrade to biventricular system in April of 2018 with adequate function. Mode DDD, lower rate limit of 70. FEEDER ASSOCIATE 90%. VSR pacing is 4.4%. OptiVol fluid index is below threshold and stable. Impedances are trending up. RECOMMENDATIONS: 1. I agree with the current plan for heart failure optimization. He appears to be fluid overloaded. We will defer to Cardiology for this. 2. I agree with a short-term course of amiodarone as his frequent PVCs are likely contributing to his heart failure exacerbation. If we can calm his rhythm issues down and better optimize him, could consider discontinuing amiodarone in the future and if high burden PVCs recur, consider an ablation in the future. That being said, PVC ablation would need to wait until his heart failure is better optimized. Thank you for allowing me to participate in the care of this patient. Dictated by Chelo Vega PA-C, for Dr. Rosario. Job ID: [id number]
[2019-01-30] MEDS ORDERED: Sodium Chloride 0.9% 500 ML IV SCH (08:45)
[2019-01-30] MEDS ORDERED: Sacubitril 24.5 MG/Valsartan 25.5 MG TABLET PO SCH (09:00)
--- NOTE | 2019-01-30 09:16 | PRG ---
DATE OF SERVICE: 01/30/2019 SUBJECTIVE: Mr. Bourgeois said he feels a little bit better. OBJECTIVE: VITAL SIGNS: His blood pressure is 104/55, pulse 68 and regular. LUNGS: Show diffuse rhonchi and wheezing. CARDIAC: Normal S1 and normal S2. ABDOMEN: Obese and nontender. EXTREMITIES: [id number] edema. LABORATORY DATA: The patient's creatinine increased up to 2.24 from 1.71, it was 1.62 on admission. ASSESSMENT: 1. Congestive heart failure, systolic, acute on chronic, probably somewhat volume depleted. 2. Renal insufficiency, probably somewhat intravascularly depleted. 3. Frequent premature ventricular complexes in bigeminy, playing a role in his heart failure. 4. May also have some bronchitis. PLAN: 1. Stop furosemide. He received a dose this morning. 2. We will give him a little bit of intravenous fluid. 3. We will hold off on the Entresto now until his renal function stabilizes. 4. Long-term I do not think he is going to be able to tolerate the amiodarone, probably a PVC ablation at some point. Job ID: [id number]
[2019-01-30] MEDS: Allopurinol 300 MG TAB PO SCH (09:59)
[2019-01-30] MEDS: Carvedilol 25 MG TAB PO SCH ×2 (10:00→16:34)
[2019-01-30] MEDS: Amiodarone 200 MG TAB PO SCH ×2 (10:01→21:31)
[2019-01-30] MEDS: Enoxaparin Sodium 40 MG/0.4 ML SYRINGE SC SCH (10:01)
[2019-01-30] MEDS: NPH, Human Insulin Isophane 300 UNIT/3 ML VIAL SC SCH ×2 (10:15→21:31)
[2019-01-30] MEDS: Potassium Chloride 20 MEQ TAB PO SCH (10:26)
--- NOTE | 2019-01-30 16:59 | PDOC.CTH ---
Cardiology Progress Note - Subjective EP PROGRESS NOTE: 01/30/19 Mr. Bourgeois is a 64-year-old gentleman known to our practice for history of chronic systolic heart failure, nonischemic cardiomyopathy, and an ICD that was upgraded to a biventricular system in April of 2018. He was most recently seen in our clinic in December of this year, at which point he was found to have suboptimal ventricular pacing due to premature ventricular complexes. He had optimized medications and also increased his lower rate limit to 70 beats per minute to try to offset this suboptimal pacing. Mr. Bourgeois presented to the emergency room with increasing shortness of breath and a progressive edema despite medical therapy with heart failure exacerbation. He was also found to have high burden PVCs often bigeminal and thus prompting the Electrophysiology consultation. Feeling somewhat better today as he continues to diurese. - Objective Vital Signs Temp Pulse Resp BP Pulse Ox 01/30/19 15:17 98.1 F 75 12 139/65 98 01/30/19 11:13 97.6 F 72 16 122/56 L 96 01/30/19 10:43 65 16 98 01/30/19 10:01 97.7 F 81 16 109/55 L 97 Weight 245 lb 7 oz 01/29/19 01/30/19 01/31/19 06:59 06:59 06:59 Intake Total 1660 1590 Output Total 975 580 Balance 685 1010 - Telemetry Telemetry Rhythm: SR, PVC - Labs Result Diagrams: 01/28/19 02:35 01/30/19 05:53 Troponin/CKMB Troponin I 0.028 ng/mL (< 0.028) 01/28/19 05:17 - Assessment/Plan 1. A/C heart failure - exacerbation ongoing 2. PVC -high burden - likely contributing factor to CHF exacerbation - amiodarone for suppression Continue short term amio for PVC suppression while HF is optimized. snf plan for PVC ablation in the future.
[2019-01-30] MEDS: Simvastatin 5 MG TAB PO SCH (21:31)
[2019-01-30] MEDS: Aspirin 81 mg Enteric Coated Tablet PO SCH (21:31)
--- NOTE | 2019-01-31 06:43 | PDOC.EVN ---
Addendum - Attending - Attending Attestation Date/Time: 01/31/19 7364 I personally evaluated the patient and discussed the management with Dr. Turner. I agree with the History, Examination, Assessment and Plan documented in her progress note with any addition or exceptions noted below. Patient with with acute on chronic CHF thought 2/2 increased ventricular arrhythmia. He is quite a bit better and was able to shower yesterday without supplemental O2. Continues to have some HENDERSON. His ventricular rhythm is overall improved with Amiodarone therapy but continues to have frequent PVCs. Cardiology and EP on board. Diuresis held yesterday due to bumps in Creatinine. He continues to have wet sounding cough, and lungs sound rhonchorous. Will give Mucinex to see if this results in some improvement. Awaiting labs today to see how his renal function is doing.
[2019-01-31 07:02] LABS: Anion Gap 11 mmol/L (10-20); BUN (Urea Nitrogen) 72 mg/dL (8.4-25.7); Calc. Creatinine Clearance 64 mL/min (70-130); Calcium 9.1 mg/dL (7.8-10.44); Carbon Dioxide 27 mmol/L (23-31); Chloride 102 mmol/L (98-107); Estimated GFR-MDRD 37; Glucose 109 mg/dL (80-115); Potassium 4.3 mmol/L (3.5-5.1); Sodium 136 mmol/L (136-145)
[2019-01-31] MEDS: Sacubitril 24.5 MG/Valsartan 25.5 MG TABLET PO SCH ×2 (08:00→21:25)
[2019-01-31] MEDS: guaiFENesin/DM ER PO SCH ×2 (08:01→21:25)
[2019-01-31] MEDS: Allopurinol 300 MG TAB PO SCH (08:01)
[2019-01-31] MEDS: Potassium Chloride 20 MEQ TAB PO SCH (08:02)
[2019-01-31] MEDS: Amiodarone 200 MG TAB PO SCH (08:02)
[2019-01-31] MEDS: Carvedilol 25 MG TAB PO SCH ×2 (08:02→16:59)
[2019-01-31] MEDS: NPH, Human Insulin Isophane 300 UNIT/3 ML VIAL SC SCH ×2 (08:03→21:25)
[2019-01-31] MEDS: Enoxaparin Sodium 40 MG/0.4 ML SYRINGE SC SCH (08:05)
--- NOTE | 2019-01-31 08:12 | PDOC.FM ---
- Subjective Subjective: Patient reports that he continues to have SOB and cough, but has been improving a little. He reports that he was able to shower yesterday without O2 and didn't get too short of breath. He denies fevers, chills, N/V. He feels that his leg swelling has improved. - Objective MAR Reviewed: Yes Vital Signs & Weight: Vital Signs (12 hours) Temp Pulse Resp BP Pulse Ox 01/31/19 07:55 97.9 F 67 18 142/68 H 96 01/31/19 03:36 97.9 F 74 20 124/63 96 Weight Weight 114.26 kg I&O: 01/30/19 01/31/19 02/01/19 06:59 06:59 06:59 Intake Total 1590 1350 Output Total 580 1110 Balance 1010 240 Result Diagrams: 01/28/19 02:35 01/31/19 06:04 Phys Exam - Physical Examination Constitutional: NAD HEENT: moist MMs, sclera anicteric Respiratory: no wheezing rales in bilateral bases with diffuse rhonchi Cardiovascular: no significant murmur, irregular Gastrointestinal: soft, non-tender, no distention, positive bowel sounds Musculoskeletal: pulses present, edema present (trace pedal edema) Neurological: non-focal, moves all 4 limbs Psychiatric: normal affect, A&O x 3 Skin: normal turgor, cap refill <2 seconds Dx/Plan (1) Acute respiratory failure with hypoxia Code(s): J96.01 - ACUTE RESPIRATORY FAILURE WITH HYPOXIA Status: Acute (2) Acute exacerbation of CHF (congestive heart failure) Code(s): I50.9 - HEART FAILURE, UNSPECIFIED Status: Acute Qualifiers: Heart failure type: systolic Qualified Code(s): I50.23 - Acute on chronic systolic (congestive) heart failure (3) Ventricular dysrhythmia Code(s): I49.9 - CARDIAC ARRHYTHMIA, UNSPECIFIED Status: Acute (4) Nonischemic cardiomyopathy Code(s): I42.8 - OTHER CARDIOMYOPATHIES Status: Acute (5) Diabetes mellitus type 2 in obese Code(s): E11.69 - TYPE 2 DIABETES MELLITUS WITH OTHER SPECIFIED COMPLICATION; E66.9 - OBESITY, UNSPECIFIED Status: Acute (6) Hypertension Code(s): I10 - ESSENTIAL (PRIMARY) HYPERTENSION Status: Acute (7) Hyperlipidemia Code(s): E78.5 - HYPERLIPIDEMIA, UNSPECIFIED Status: Acute (8) ILANA treated with BiPAP Code(s): G47.33 - OBSTRUCTIVE SLEEP APNEA (ADULT) (PEDIATRIC) Status: Acute (9) Hypomagnesemia Code(s): E83.42 - HYPOMAGNESEMIA Status: Resolved (10) CKD (chronic kidney disease) stage 3, GFR 30-59 ml/min Code(s): N18.3 - CHRONIC KIDNEY DISEASE, STAGE 3 (MODERATE) Status: Acute - Plan Plan: Acute Hypoxic Respiratory Failure, improving 2/2 CHF exacerbation and ventricular dysrhythmia Currently on 2L O2 by NC. - Continue O2 - Mucinex for congestion - Will consult pulmonology due to continued respiratory distress despite adequate diuresis Acute CHF exacerbation Echo: LVEF 30-35%, dilated LA, mild-mod TR, mod MR. BNP 1218. Has Dual chamber ICD placed November 2010 - HH diet, fluid restriction - Strict I&Os, weight daily - Lasix stopped yesterday by Dr. Lanier, will possibly resume PO tomorrow pending renal function - Continue home coreg - Lisinopril was stopped and entresto was started Ventricular Dysrhythmia Runs of NSVT and PVCs, with episodes of bigeminy. Interrogated his AICD and showed NSVT and multiple PVC's, did not fire - Dr Peguero called from the ED, started amiodarone, this has been transitioned to PO and dose decreased due to side effects - Consulted his api architect, Dr. Lanier, appreciate recs - Will continue to monitor closely on tele - EP has been consulted, appreciate recs Hypomagnesemia, resolved Initially 1.5->1.8 after 2g mag - Monitor HTN - Continue home meds CKDIII Per Dr. Gaytan the patient had been having uptrending creatinine with a peak of around 2.5 in September, but it has been downtrending since then and was 1.7 here. - Avoid nephrotoxic medications - Continue to monitor DMII - CC diet - Continue home meds - ACHS accuchecks, SSI, hypoglycemic protocol ILANA - CPAP at HS HLD - Continue home meds Code Status: FULL DVT ppx: Lovenox
[2019-01-31] MEDS: HYDROcodone/Acetaminophen 10/325 mg Tablet PO PRN ×2 (08:13→21:26)
--- NOTE | 2019-01-31 08:29 | PRG ---
DATE OF SERVICE: 01/31/2019 SUBJECTIVE: Mr. Bourgeois complains of a cough. He is having trouble clearing his secretions. He has been mostly in bed. OBJECTIVE: VITAL SIGNS: Blood pressure 124/63, pulse 74, it is regular. LUNGS: Diffuse rhonchi. CARDIAC: Normal S1 and normal S2. ABDOMEN: Soft and nontender. EXTREMITIES: There is no significant edema. PERTINENT LABORATORY DATA: Creatinine improved to 1.86. He got 500 mL of normal saline yesterday and he was over diuresed yesterday. ASSESSMENT: 1. Congestive heart failure, systolic, acute on chronic, likely compensated. 2. Renal failure, stable, stage III. Estimated GFR is improved to 37. 3. Cough, probably pulmonary secretions. PLAN: 1. Recheck OptiVol today. 2. We will repeat chest x-ray. 3. I will have to reduce the amiodarone to once a day. Hopefully, once he is stable, an ablation could be done. He has frequent bigeminy, which definitely reduces the effectiveness of his cardiac output. 4. ? Pulmonary consultation concerning his lungs. ADDENDUM: Since the kidney function has now improved and stabilized, will start Entresto. Job ID: [id number]
--- NOTE | 2019-01-31 09:51 | RAD ---
CHEST 1 VIEW: HISTORY: Congestive heart failure. COMPARISON: 01/28/2019. FINDINGS: Left ICD. Stable nodular density overlying the left heart border. Mild vascular congestion. No con fluent pneumonia, overt edema, or pleural effusion. IMPRESSION: No significant acute intrathoracic disease. Stable nodular density overlying the left heart border. Continued short-term followup. POS: [facility]
--- NOTE | 2019-01-31 12:50 | PDOC.CTH ---
Cardiology Progress Note - Subjective EP PROGRESS NOTE: 01/31/19 Mr. Bourgeois is a 64-year-old gentleman known to our practice for history of chronic systolic heart failure, nonischemic cardiomyopathy, and an ICD that was upgraded to a biventricular system in April of 2018. He was most recently seen in our clinic in December of this year, at which point he was found to have suboptimal ventricular pacing due to premature ventricular complexes. He had optimized medications and also increased his lower rate limit to 70 beats per minute to try to offset this suboptimal pacing. Mr. Bourgeois presented to the emergency room with increasing shortness of breath and a progressive edema despite medical therapy with heart failure exacerbation. He was also found to have high burden PVCs often bigeminal and thus prompting the Electrophysiology consultation. He denies heart racing, palpitations, chest pain/pressure, dizziness, passing out, or stroke like symptoms. Able to walk around room a bit more today +SOB, HENDERSON, orthopnea, BLE swelling. - Objective Vital Signs Temp Pulse Resp BP Pulse Ox 01/31/19 11:48 98.3 F 87 18 130/74 95 01/31/19 07:55 97.9 F 67 18 142/68 H 96 01/31/19 03:36 97.9 F 74 20 124/63 96 Weight 251 lb 14.4 oz 01/30/19 01/31/19 02/01/19 06:59 06:59 06:59 Intake Total 1590 1350 Output Total 580 1110 Balance 1010 240 - Physical Examination General/Neuro: alert & oriented x3, NAD Neck: carotid US brisk, no JVD present Lungs: other: (crackles b/l) Heart: PMI normal, RRR (SR with occas PVC) Abdomen: NT/ND, soft, other: (obese) Extremities: + edema B - Telemetry Telemetry Rhythm: SR occas PVCs - Labs Result Diagrams: 01/28/19 02:35 01/31/19 06:04 Troponin/CKMB Troponin I 0.028 ng/mL (< 0.028) 01/28/19 05:17 - Assessment/Plan 1. A/C heart failure - exacerbation ongoing - lasix on hold d/t kidney function 2. PVC - high burden on admit that has decreased substantially in past 24 hours - likely contributing factor to CHF exacerbation - amiodarone 200mg QD for suppression - likely LVOT or RVOT in origin 3. NSVT 4. CKD-stage 3 5. BiV ICD - normal operation - suboptimal SET UP AND CHARGER pacing d/t high burden PVCs. Continue short term amio 200mg PO daily for PVC suppression while HF is being optimized. Appt scheduled in 1 month to discuss PVC ablation. OK to DC by EP.
[2019-01-31] MEDS ORDERED: predniSONE 20 MG TAB PO SCH (14:40)
--- NOTE | 2019-01-31 14:49 | CON ---
DATE OF CONSULTATION: 01/31/2019 SERVICE: Pulmonary Medicine. REASON FOR CONSULTATION: Respiratory failure. HISTORY OF PRESENT ILLNESS: The patient is a 64-year-old white male with past medical history significant for a chronic systolic heart failure. He has had shortness of breath on 3 occasions in his life. The first time was back in the , during which time, he was diagnosed with chronic systolic heart failure. At that point, he was severely swollen. He ended up getting diuresed and felt a little bit better. He had a second episode of shortness of breath in 2011. He had similar features with increasing lower extremity swelling that came on over a period of couple of weeks, he was diuresed, and he once again resolved. This presentation was a little bit different. He notes a sick contact. He started having cough and congestion. He was wheezing significantly, and bring up a little bit of white phlegm. He had increasing difficulties with cough and sputum production, particularly at night. He subsequently presented to the emergency department because of congestion in the face, and difficulty breathing. Over the last couple of days, he has had a significant improvement in his breathing with nebulized medications, and mucolytic agents. He has been diuresed back down close to euvolemia. He denies any current fevers or chills. He is not having orthopnea or paroxysmal nocturnal dyspnea on this occasion. He is having dyspnea that limits his activity. This progressed slowly over a period of 1 week. Ultimately, he went to the emergency department on the 27 of January. PAST MEDICAL HISTORY: 1. Chronic systolic heart failure. 2. Type 2 diabetes mellitus. 3. Hypertension. 4. Dyslipidemia. 5. Obstructive sleep apnea. 6. Breast cancer. PAST SURGICAL HISTORY: 1. Knee surgery. 2. Hip surgery. 3. Back surgery x2. 4. Hand surgery. FAMILY HISTORY: Noncontributory. SOCIAL HISTORY: He quit smoking in 1993, but prior to that, had a less than 10- pack year history of smoking. Denies any alcohol or illicit drug use. He has no exposure to chemicals, dust, asbestos, or tuberculosis. He is currently on disability. ALLERGIES: NO KNOWN DRUG ALLERGIES. MEDICATIONS: List of his inpatient medications was reviewed. No specific updates were made at this time. REVIEW OF SYSTEMS: General; head; ears; eyes; nose; throat; cardiovascular; respiratory; GI; ; musculoskeletal; neurologic; and skin are negative except as mentioned in the HPI. PHYSICAL EXAMINATION: VITAL SIGNS: Afebrile, pulse 87, blood pressure 130/74, respirations 18, and saturation 95% on 2 L nasal cannula. GENERAL: The patient is awake and alert, in no apparent distress. LUNGS: There is good air entry. He has a slightly prolonged expiratory phase. I do not appreciate much in the way of crackles though rhonchi and minimal wheezing, particularly with forced exhalation are present. HEART: Normal rate and regular. ABDOMEN: Soft, nontender, and nondistended. Bowel sounds are positive. MUSCULOSKELETAL: No cyanosis or clubbing. There is trace to 1+ pitting in the bilateral lower extremities. NEUROLOGIC: Grossly nonfocal. LABORATORY DATA: Creatinine 1.86 and gently downtrending. Basic metabolic profile is otherwise unremarkable. His BUN is stable at 72. IMAGING STUDIES: Chest x-ray shows no acute cardiopulmonary abnormality. There is some pulmonary nodularity at the left hilum. Costophrenic angles are sharp. Soft tissue attenuation is present. There is possibly a small patch pneumonia in the left mid lung zone. ASSESSMENT: 1. Acute hypoxic respiratory failure, improving. 2. Acute bronchitis. 3. Pulmonary nodularity at the left hilum. 4. Acute on chronic systolic heart failure, returned to euvolemia. 5. Chronic kidney disease, stage 3. 6. High burden of premature ventricular contractions. 7. Nonsustained ventricular tachycardia, intermittent, and asymptomatic. DISCUSSION AND PLAN: The patient is doing fine from a respiratory standpoint. I will give him a 5-day course of doxycycline, and a 5-day course of low-dose prednisone. In the outpatient setting, repeat chest x-ray will need to be performed in 1 to 2 weeks. If this pulmonary nodularity persists, a CT scan of the chest will need to be performed. Pulmonary/Critical Care will continue to follow along. Respiratory virus panel will be performed as he has sick contacts recently. 70 minutes have been devoted to this patient in various activities. I personally reviewed all imaging studies and laboratory data noted within this document. For fifty percent of this time, I was interacting with the patient at the bedside or coordinating care with the care team. For the remainder of the time I was immediately available to the patient in the hospital unit. Job ID: [id number] [facility]
[2019-01-31] MEDS: Simvastatin 5 MG TAB PO SCH (21:25)
[2019-01-31] MEDS: Aspirin 81 mg Enteric Coated Tablet PO SCH (21:25)
[2019-01-31] MEDS: Doxycycline 100 MG CAP PO SCH (21:25)
[2019-02-01 05:17] LABS: Anion Gap 12 mmol/L (10-20); BUN (Urea Nitrogen) 76 mg/dL (8.4-25.7); Calc. Creatinine Clearance 68 mL/min (70-130); Calcium 9.2 mg/dL (7.8-10.44); Carbon Dioxide 29 mmol/L (23-31); Chloride 102 mmol/L (98-107); Estimated GFR-MDRD 40; Glucose 179 mg/dL (80-115); Potassium 5.2 mmol/L (3.5-5.1); Sodium 138 mmol/L (136-145)
--- NOTE | 2019-02-01 07:00 | PDOC.FM ---
- Subjective Subjective: Mr. Bourgeois is resting comfortably in bed, he reports SOB without O2, and a persistent cough. - Objective Vital Signs & Weight: Vital Signs (12 hours) Temp Pulse Resp BP Pulse Ox 02/01/19 04:00 97.5 F L 70 18 141/65 H 92 L 01/31/19 20:00 98.1 F 69 18 144/77 H 92 L Weight Weight 114.668 kg I&O: 01/30/19 01/31/19 02/01/19 06:59 06:59 06:59 Intake Total 1590 1350 950 Output Total 580 1110 1350 Balance 1010 240 -400 Result Diagrams: 01/28/19 02:35 02/01/19 04:32 Phys Exam - Physical Examination Constitutional: NAD HEENT: moist MMs Neck: full ROM good inspiratory and expiratory effort Gastrointestinal: no distention Neurological: moves all 4 limbs Psychiatric: normal affect Skin: no rash Dx/Plan (1) HFrEF (heart failure with reduced ejection fraction) Code(s): I50.20 - UNSPECIFIED SYSTOLIC (CONGESTIVE) HEART FAILURE Status: Acute (2) Acute respiratory failure with hypoxia Code(s): J96.01 - ACUTE RESPIRATORY FAILURE WITH HYPOXIA Status: Acute (3) CKD (chronic kidney disease) stage 3, GFR 30-59 ml/min Code(s): N18.3 - CHRONIC KIDNEY DISEASE, STAGE 3 (MODERATE) Status: Acute (4) Diabetes mellitus type 2 in obese Code(s): E11.69 - TYPE 2 DIABETES MELLITUS WITH OTHER SPECIFIED COMPLICATION; E66.9 - OBESITY, UNSPECIFIED Status: Acute (5) Hyperlipidemia Code(s): E78.5 - HYPERLIPIDEMIA, UNSPECIFIED Status: Acute (6) Hypertension Code(s): I10 - ESSENTIAL (PRIMARY) HYPERTENSION Status: Acute (7) Nonischemic cardiomyopathy Code(s): I42.8 - OTHER CARDIOMYOPATHIES Status: Acute (8) ILANA treated with BiPAP Code(s): G47.33 - OBSTRUCTIVE SLEEP APNEA (ADULT) (PEDIATRIC) Status: Acute (9) Ventricular dysrhythmia Code(s): I49.9 - CARDIAC ARRHYTHMIA, UNSPECIFIED Status: Acute - Plan Plan: Acute Hypoxic Respiratory Failure, improving 2/2 CHF exacerbation and ventricular dysrhythmia - consistent O2 requirement, test for home O2 today - Mucinex for congestion - parainfluenza virus positive - pulm consulted, appreciate recs - doxycycline and oral steroids for 5 days Acute CHF exacerbation Echo: LVEF 30-35%, dilated LA, mild-mod TR, mod MR. BNP 1218. Has Dual chamber ICD placed November 2010 - HH diet, fluid restriction - Strict I&Os, weight daily - resume lasix today as kidney fxn is improving - Continue home coreg - Lisinopril was stopped and entresto was started Ventricular Dysrhythmia Runs of NSVT and PVCs, with episodes of bigeminy. Interrogated his AICD and showed NSVT and multiple PVC's, did not fire - Dr Peguero called from the ED, started amiodarone, this has been transitioned to PO and dose decreased due to side effects - Consulted his individual pension adviser, Dr. Lanier, appreciate recs - Will continue to monitor closely on tele - EP has been consulted, signed off, follow up in clinic scheduled Hypomagnesemia, resolved Initially 1.5->1.8 after 2g mag - Monitor HTN - Continue home meds CKDIII Per Dr. Gaytan the patient had been having uptrending creatinine with a peak of around 2.5 in September, but it has been downtrending since then and was 1.7 here. - Avoid nephrotoxic medications - Continue to monitor DMII - CC diet - Continue home meds - ACHS accuchecks, SSI, hypoglycemic protocol ILANA - CPAP at HS HLD - Continue home meds Code Status: FULL DVT ppx: Lovenox dispo: DC with home O2 today or tomorrow Addendum - Attending - Attending Attestation Date/Time: 02/01/19 1108 I personally evaluated the patient at 0750 and discussed the management with Dr. Cobos. I agree with the History, Examination, Assessment and Plan documented above with any addition or exceptions noted below. Acute hypoxia, multifactoral- wean O2 to keep sats >92% Acute bronchitis superimposed on parainfluenza- doxy, nebs, steroids. CHF-euvolemic now- continue home meds constipation- bowel regimen. Hope for d/c tomorrow.
[2019-02-01] MEDS: predniSONE 20 MG TAB PO SCH (09:05)
[2019-02-01] MEDS: guaiFENesin/DM ER PO SCH ×2 (09:05→20:35)
[2019-02-01] MEDS: Amiodarone 200 MG TAB PO SCH (09:05)
[2019-02-01] MEDS: Carvedilol 25 MG TAB PO SCH ×2 (09:05→16:39)
[2019-02-01] MEDS: Sacubitril 24.5 MG/Valsartan 25.5 MG TABLET PO SCH ×2 (09:06→20:04)
[2019-02-01] MEDS: Furosemide 40 MG TAB PO SCH ×2 (09:06→16:39)
[2019-02-01] MEDS: Allopurinol 300 MG TAB PO SCH (09:06)
[2019-02-01] MEDS: Doxycycline 100 MG CAP PO SCH ×2 (09:06→20:03)
[2019-02-01] MEDS: Enoxaparin Sodium 40 MG/0.4 ML SYRINGE SC SCH (09:07)
[2019-02-01] MEDS: NPH, Human Insulin Isophane 300 UNIT/3 ML VIAL SC SCH ×2 (09:08→20:35)
[2019-02-01] MEDS: HYDROcodone/Acetaminophen 10/325 mg Tablet PO PRN ×2 (09:11→16:39)
[2019-02-01] MEDS: Potassium Chloride 20 MEQ TAB PO SCH ×2 (09:14→16:46)
--- NOTE | 2019-02-01 09:21 | PRG ---
DATE OF SERVICE: 02/01/2019 SUBJECTIVE: Mr. Bourgeois is doing better. His breathing is improved. OBJECTIVE: VITAL SIGNS: His blood pressure is 144/71 and pulse is 70, it is regular. LUNGS: There are some rhonchi. CARDIAC: Normal S1. Normal S2. ABDOMEN: Soft, nontender. EXTREMITIES: There is only minimal edema. PERTINENT LABORATORY DATA: Creatinine is down to 1.74, potassium is 5.2. ASSESSMENT: 1. Congestive heart failure, stable. OptiVol reveals he is no longer appears to be in pulmonary congestion. 2. Bronchitis. 3. Hyperkalemia, mild. 4. Stage 3 renal failure, slightly improved. 5. Premature ventricular contractions. PLAN: 1. Continue Entresto. 2. He is on amiodarone 200 mg once a day, would not want to use this long-term. 3. Ultimately, PVC ablation. 4. Probably home tomorrow if stable. Check [facility]-met again tomorrow. Job ID: [id number]
[2019-02-01] MEDS: Docusate 100 MG CAP PO SCH ×2 (09:23→20:04)
[2019-02-01] MEDS: Insulin Regular 300 UNITS/3 ML VIAL SC PRN ×2 (11:43→16:49)
--- NOTE | 2019-02-01 16:24 | PRG ---
DATE OF SERVICE: 02/01/2019 SERVICE: Pulmonary Medicine. INTERVAL HISTORY: The patient is doing really well from respiratory standpoint. Breathing comfortably. He has a little bit of a cough. The cough is much easily starting to liberate significant amounts of phlegm. PHYSICAL EXAMINATION: VITAL SIGNS: Afebrile, pulse 72, blood pressure 134/70, respirations 20, and saturation 92% on room air. GENERAL: The patient is awake and alert, in no apparent distress. LUNGS: Decent air entry. No prolonged expiratory phase or wheezing is appreciated. HEART: Normal rate and regular. ABDOMEN: Soft, nontender, and nondistended. Bowel sounds are positive. MUSCULOSKELETAL: No cyanosis or clubbing. No pitting in the bilateral lower extremities. NEUROLOGIC: Grossly nonfocal. LABORATORY DATA: Creatinine 1.74, which is roughly stable and BUN 76, uptrending. Potassium 5.2. Basic metabolic profile is otherwise unremarkable. Respiratory virus panel is positive for parainfluenza virus 3. ASSESSMENT: 1. Acute hypoxic respiratory failure, improving. 2. Acute bronchitis secondary to parainfluenza virus 3. 3. Pulmonary nodularity at the left hilum. 4. Acute on chronic systolic heart failure, returned to euvolemia. 5. Chronic kidney disease, stage 3. 6. High burden of premature ventricular contractions with nonsustained ventricular tachycardia, asymptomatic. 7. Obstructive sleep apnea, on non-invasive therapy. DISCUSSION AND PLAN: At this point, the patient is doing fine. We will continue our antibiotic and nebulized medications, and low doses of steroids. He has been weaned down to room air and his saturations are being maintained at 92%. I would like for him to ambulate through today and tomorrow. From a purely respiratory perspective, he is stable for transition home unless Cardiology is planning on something inpatient. He will need an outpatient chest x-ray in 1-2 weeks to make certain the pulmonary nodularity resolves. If it does not, a CT chest will need to be considered. Pulmonary will continue to follow for the time being. Job ID: [id number] [facility] FACILITYLizzy
[2019-02-01] MEDS: Simvastatin 5 MG TAB PO SCH (20:04)
[2019-02-01] MEDS: Aspirin 81 mg Enteric Coated Tablet PO SCH (20:04)
[2019-02-02 05:31] LABS: Anion Gap 10 mmol/L (10-20); BUN (Urea Nitrogen) 71 mg/dL (8.4-25.7); Calc. Creatinine Clearance 84 mL/min (70-130); Calcium 9.3 mg/dL (7.8-10.44); Carbon Dioxide 31 mmol/L (23-31); Chloride 102 mmol/L (98-107); Estimated GFR-MDRD 50; Glucose 145 mg/dL (80-115); Potassium 4.4 mmol/L (3.5-5.1); Sodium 139 mmol/L (136-145)
--- NOTE | 2019-02-02 06:53 | PDOC.FM ---
- Subjective Subjective: pt resting comfortably in bed, no SOB or CP - Objective Vital Signs & Weight: Vital Signs (12 hours) Temp Pulse Resp BP Pulse Ox 02/02/19 03:19 97.2 F L 70 19 156/71 H 95 02/01/19 20:00 96.0 F L 69 20 136/73 95 Weight Weight 113.993 kg I&O: 01/31/19 02/01/19 02/02/19 06:59 06:59 06:59 Intake Total 1350 950 210 Output Total 1110 1350 1150 Balance 240 -400 -940 Result Diagrams: 01/28/19 02:35 02/02/19 04:25 Phys Exam - Physical Examination Constitutional: NAD HEENT: moist MMs Neck: full ROM Respiratory: wheezing present Cardiovascular: RRR Gastrointestinal: soft, no distention Musculoskeletal: no edema, pulses present Neurological: normal sensation Psychiatric: normal affect Skin: no rash Dx/Plan (1) HFrEF (heart failure with reduced ejection fraction) Code(s): I50.20 - UNSPECIFIED SYSTOLIC (CONGESTIVE) HEART FAILURE Status: Acute (2) Acute respiratory failure with hypoxia Code(s): J96.01 - ACUTE RESPIRATORY FAILURE WITH HYPOXIA Status: Acute (3) CKD (chronic kidney disease) stage 3, GFR 30-59 ml/min Code(s): N18.3 - CHRONIC KIDNEY DISEASE, STAGE 3 (MODERATE) Status: Acute (4) Diabetes mellitus type 2 in obese Code(s): E11.69 - TYPE 2 DIABETES MELLITUS WITH OTHER SPECIFIED COMPLICATION; E66.9 - OBESITY, UNSPECIFIED Status: Acute (5) Hyperlipidemia Code(s): E78.5 - HYPERLIPIDEMIA, UNSPECIFIED Status: Acute (6) Hypertension Code(s): I10 - ESSENTIAL (PRIMARY) HYPERTENSION Status: Acute (7) Nonischemic cardiomyopathy Code(s): I42.8 - OTHER CARDIOMYOPATHIES Status: Acute (8) ILANA treated with BiPAP Code(s): G47.33 - OBSTRUCTIVE SLEEP APNEA (ADULT) (PEDIATRIC) Status: Acute (9) Ventricular dysrhythmia Code(s): I49.9 - CARDIAC ARRHYTHMIA, UNSPECIFIED Status: Acute - Plan Plan: Acute Hypoxic Respiratory Failure, improving 2/2 CHF exacerbation and ventricular dysrhythmia - saturating well on RA - Mucinex for congestion, albuterol inhaler - parainfluenza virus positive - pulm consulted, appreciate recs - doxycycline and oral steroids for 5 days Acute CHF exacerbation Echo: LVEF 30-35%, dilated LA, mild-mod TR, mod MR. BNP 1218. Has Dual chamber ICD placed November 2010 - diet, fluid restriction - Strict I&Os, weight daily - lasix resumed - Continue home coreg - Lisinopril was stopped and entresto was started Ventricular Dysrhythmia Runs of NSVT and PVCs, with episodes of bigeminy. Interrogated his AICD and showed NSVT and multiple PVC's, did not fire - Dr Peguero called from the ED, started amiodarone, this has been transitioned to PO and dose decreased due to side effects - Consulted his dry house worker, Dr. Lanier, appreciate recs - Will continue to monitor closely on tele - EP has been consulted, signed off, follow up in clinic scheduled Hypomagnesemia, resolved Initially 1.5->1.8 after 2g mag - Monitor HTN - Continue home meds CKDIII, improved Per Dr. Gaytan the patient had been having uptrending creatinine with a peak of around 2.5 in September, but it has been downtrending since then and was 1.7 here. - Avoid nephrotoxic medications - Continue to monitor DMII - CC diet - Continue home meds - ACHS accuchecks, SSI, hypoglycemic protocol ILANA - CPAP at HS HLD - Continue home meds Code Status: FULL DVT ppx: Lovenox dispo: DC home Addendum - Attending - Attending Attestation Date/Time: 02/02/19 7155 I personally evaluated the patient and discussed the management with Dr. Cobos. I agree with the History, Examination, Assessment and Plan documented above with any addition or exceptions noted below. No longer requiring O2 and patient feels much improved. Stable for d/c if cleared by cardiology.
[2019-02-02] MEDS: predniSONE 20 MG TAB PO SCH (07:54)
[2019-02-02] MEDS: Carvedilol 25 MG TAB PO SCH (07:55)
[2019-02-02] MEDS: Furosemide 40 MG TAB PO SCH (07:55)
[2019-02-02] MEDS: Amiodarone 200 MG TAB PO SCH (07:56)
[2019-02-02] MEDS: Allopurinol 300 MG TAB PO SCH (07:56)
[2019-02-02] MEDS: Docusate 100 MG CAP PO SCH (07:56)
[2019-02-02] MEDS: NPH, Human Insulin Isophane 300 UNIT/3 ML VIAL SC SCH (07:57)
[2019-02-02] MEDS: Sacubitril 24.5 MG/Valsartan 25.5 MG TABLET PO SCH (07:57)
[2019-02-02] MEDS: Enoxaparin Sodium 40 MG/0.4 ML SYRINGE SC SCH (07:57)
[2019-02-02] MEDS: guaiFENesin/DM ER PO SCH (07:58)
[2019-02-02] MEDS: Doxycycline 100 MG CAP PO SCH (07:59)
[2019-02-02] MEDS: HYDROcodone/Acetaminophen 10/325 mg Tablet PO PRN (08:07)
[2019-02-02 11:54] VITALS: BP 115/72; TEMP 98.3
== END 2019-02-02 13:40 | disposition home or self-care (01) | DRG 291 ==
LOC: ERS 22:16 → 2NO 23:05
PROVIDERS: ADMIT Student in an Organized Health Care Education/Training Program; ATTEND Student in an Organized Health Care Education/Training Program
DX: I13.0 Hypertensive heart and chronic kidney disease with heart failure and stage 1 through stage 4 chronic kidney disease, or unspecified chronic kidney disease (principal); J96.01 Acute respiratory failure with hypoxia; I50.23 Acute on chronic systolic (congestive) heart failure; I47.0 Re-entry ventricular arrhythmia; N17.9 Acute kidney failure, unspecified; I47.2 Ventricular tachycardia; E78.5 Hyperlipidemia, unspecified; E11.22 Type 2 diabetes mellitus with diabetic chronic kidney disease; G47.33 Obstructive sleep apnea (adult) (pediatric); F17.210 Nicotine dependence, cigarettes, uncomplicated; E83.42 Hypomagnesemia; I49.3 Ventricular premature depolarization; N18.3 Chronic kidney disease, stage 3 (moderate); I42.8 Other cardiomyopathies; K59.00 Constipation, unspecified; J20.9 Acute bronchitis, unspecified; I44.7 Left bundle-branch block, unspecified; B34.8 Other viral infections of unspecified site; E87.5 Hyperkalemia; Z79.82 Long term (current) use of aspirin; Z85.3 Personal history of malignant neoplasm of breast
CPT/HCPCS: 36415; 36416; 71045; 80048; 83735; 84100; 84443; 84484; 85025; 87633; 93005; 93306; 93798; 94640; 96365; 96376; J0282; J1650; J1815; J1940; J3475; J3490; J7070; J7512; J7620

== ENCOUNTER 2019-02-11 13:15 | Outpatient (CLI) | payer MEDICARE, OTHER ==
--- NOTE | 2019-02-11 13:33 | RAD ---
XR Chest Pa Lat @ [facility] History: [Dyspnea] Comparison: Radiograph January 31, 2019 Findings: Right axilla surgical clips. Severe degenerative disease of the right shoulder. AICD/pacer is present. Abnormal nodular density in the left lower lobe measures 19 mm. Healing left lateral 9th and 10th rib fractures. Severe degenerative change of the left shoulder. Impression: 1. Abnormal left lower lobe pulmonary nodule for which follow-up CT of the chest is recommended. 2. Healing left lateral 9th and 10th rib fractures.
== END 2019-02-11 13:16 | disposition home or self-care (01) ==
LOC: RAD 13:15
PROVIDERS: ATTEND Internal Medicine
DX: R06.00 Dyspnea, unspecified (principal); R91.1 Solitary pulmonary nodule; S22.42XD Multiple fractures of ribs, left side, subsequent encounter for fracture with routine healing
CPT/HCPCS: 71046

== ENCOUNTER 2019-02-20 12:59 | Outpatient (CLI) | payer MEDICARE, OTHER ==
--- NOTE | 2019-02-20 14:30 | CT ---
CT CHEST NONCONTRAST: HISTORY: Lung nodule. FINDINGS: Centrally within the left lower lobe is a 1.4 cm densely calcified lesion that correlates with the ar ea of concern on recent chest radiography. It has been present on prior chest radiographs. Lungs are hyperinflated with peripheral scarring. Nodular thickening associated with sagittally orie nted scarring at the right posterior costophrenic angle appears stable compared to the chest radiogra ph on 05/10/2018. No pleural fluid or pneumothorax. Lack of contrast limits evaluation of the soft tissues. Old left rib fractures are apparent. Degene rative changes thoracic spine. IMPRESSION: Calcified lesion in the left lower lobe. Probable hamartoma. No aggressive abnormalities are demons trated. POS: [facility]
== END 2019-02-20 13:00 | disposition home or self-care (01) ==
LOC: CT 12:59
PROVIDERS: ATTEND Internal Medicine
DX: R91.1 Solitary pulmonary nodule (principal)
CPT/HCPCS: 71250